=== PATIENT | female | born 1930 | race Caucasian/White ===

== ENCOUNTER 2017-05-09 08:00 | Outpatient (CLI) | payer MEDICARE | END 2017-05-09 08:01 | disposition home or self-care (01) | LOC: LAB.R 08:00 | PROVIDERS: ATTEND Family Medicine | DX: L89.159 Pressure ulcer of sacral region, unspecified stage (principal) | CPT/HCPCS: 87070; 87077; 87205 ==

== ENCOUNTER 2017-07-23 12:00 | Outpatient (CLI) | payer MEDICARE | END 2017-07-23 12:01 | disposition home or self-care (01) | LOC: LAB.F 12:00 | PROVIDERS: ATTEND Registered Nurse | DX: S31.809A Unspecified open wound of unspecified buttock, initial encounter (principal) | CPT/HCPCS: 87070; 87077; 87205 ==

== ENCOUNTER 2017-11-30 08:00 | Outpatient (CLI) | payer MEDICARE | END 2017-11-30 08:01 | disposition home or self-care (01) | LOC: LAB.R 08:00 | PROVIDERS: ATTEND Registered Nurse | DX: N76.0 Acute vaginitis (principal) | CPT/HCPCS: 87070; 87077; 87181 ==

== ENCOUNTER 2018-04-10 09:01 | Outpatient (CLI) | payer MEDICARE | END 2018-04-10 09:02 | disposition critical access hospital (66) | LOC: EMS 09:01 | PROVIDERS: ATTEND Surgery | DX: R53.1 Weakness (principal); R09.89 Other specified symptoms and signs involving the circulatory and respiratory systems; W06.XXXA Fall from bed, initial encounter; Y92.003 Bedroom of unspecified non-institutional (private) residence as the place of occurrence of the external cause | CPT/HCPCS: A0425; A0429 ==

== ENCOUNTER 2018-04-10 09:32 | Emergency (ER) | payer MEDICARE ==
--- NOTE | 2018-04-10 09:40 | ED Physician Documentation ---
PD HPI Fall - Stated complaint Stated Complaint: FALL - Chief complaint Chief Complaint: General - History obtained from History obtained from: EMS - History of Present Illness Mechanism of injury: Other Fall distance: From bed Where injury occurred: Home Timing - onset: Today Associated symptoms: Weakness Symptoms improve with: Rest Similar symptoms before: Has not had sx before Recently seen: Not recently seen - Additional information Additional information: 87-year-old female with advanced dementia and history of coronary artery disease [place] and this morning while she was being cleaned up by her attendant she fell out of her bed. She fell onto her left side. When the patient was evaluated by paramedics and they were unable to palpate painful areas they were able to get her to sit up in a wheelchair and in this position the patient appeared to be her usual. The patient is minimally interactive. She does have a POLST indicating comfort measures. Review of Systems Unable to obtain: Dementia PD PAST MEDICAL HISTORY - Past Medical History Cardiovascular: Hypertension Respiratory: None Endocrine/Autoimmune: None GI: None : None HEENT: Macular degeneration Psych: Depression Musculoskeletal: Scoliosis Derm: None - Past Surgical History Past Surgical History: Yes General: Appendectomy - Present Medications Home Medications: Ambulatory Orders Medication Instructions Recorded Confirmed RX: Aspirin [Adult Low Dose 81 mg PO DAILY 07/14/15 07/14/15 Aspirin EC] RX: Donepezil [Aricept] 10 mg PO DAILY 07/14/15 07/14/15 RX: Escitalopram [Lexapro] 10 mg ORAL DAILY 07/14/15 07/14/15 RX: Losartan [Cozaar] 100 mg PO DAILY 07/14/15 07/14/15 RX: amLODIPine [Norvasc] 10 mg PO DAILY 07/14/15 07/14/15 - Allergies Allergies/Adverse Reactions: Allergies Allergy/AdvReac Type Severity Reaction Status Date / Time No Known Drug Allergies Allergy Verified 04/10/18 09:36 - Social History Does the pt smoke?: No Smoking Status: Never smoker Does the pt drink ETOH?: No Does the pt have substance abuse?: No PD ED PE NORMAL - Vitals Vital signs reviewed: Yes (hypertensive and tachypneic) - General General: No acute distress, Well developed/nourished - HEENT HEENT: Atraumatic, PERRL, EOMI - Neck Neck: Supple, no meningeal sign - Cardiac Cardiac: Other (bradycardic with loud second sound. ) - Respiratory Respiratory: Other (tachypneic with diminished breath sounds. ) - Abdomen Abdomen: Soft, Non tender - Back Back: No CVA TTP, No spinal TTP - Derm Derm: Normal color, Warm and dry, No rash - Extremities Extremities: No deformity, No edema, Other (no specific tenderness to the left side. The right is contracted secondary to CVA) - Neuro Neuro: No motor deficit, No sensory deficit, Other (quiet speech with a significant delay in speech onset. ) Eye Opening: Spontaneous Motor: Localizes to Pain Verbal: Confused GCS Score: 13 - Psych Psych: Normal mood, Normal affect Results - Vitals Vitals: Vital Signs - 24 hr 04/10/18 04/10/18 04/10/18 09:30 09:32 13:26 Temperature 36.3 C L 36.6 C Heart Rate 60 90 Respiratory 26 H 22 Rate Blood Pressure 162/73 H 189/92 H O2 Saturation 87 L 92 93 Oxygen O2 Source [] Room air O2 Source [] Room air O2 Source Room air - Labs Labs: Laboratory Tests 04/10/18 04/10/18 04/10/18 10:18 10:18 10:18 WBC 14.2 H RBC 4.53 Hgb 13.0 Hct 39.4 MCV 86.9 MCH 28.7 MCHC 33.0 RDW 14.0 Plt Count 227 MPV 8.5 Neut # (Auto) 12.6 H Lymph # (Auto) 0.7 L Hyde # (Auto) 0.6 Eos # (Auto) 0.2 Baso # (Auto) 0.1 Absolute Nucleated RBC 0.01 Nucleated RBC % 0.1 Sodium 136 Potassium 4.3 Chloride 105 Carbon Dioxide 25 Anion Gap 6.0 BUN 26 H Creatinine 0.9 Estimated GFR (MDRD) 59 L Glucose 127 H Calcium 9.5 Total Bilirubin 0.6 AST 25 ALT 27 Alkaline Phosphatase 72 Troponin I < 0.04 Total Protein 7.4 Albumin 3.6 Globulin 3.8 Albumin/Globulin Ratio 0.9 L Lipase 36 Urine Color Urine Clarity Urine pH Ur Specific [place] Urine Protein Urine Glucose (UA) Urine Ketones Urine Occult Blood Urine Nitrite Urine Bilirubin Urine Urobilinogen Ur Leukocyte Esterase Ur Microscopic Review Urine Culture Comments 04/10/18 10:30 WBC RBC Hgb Hct MCV MCH MCHC RDW Plt Count MPV Neut # (Auto) Lymph # (Auto) Hyde # (Auto) Eos # (Auto) Baso # (Auto) Absolute Nucleated RBC Nucleated RBC % Sodium Potassium Chloride Carbon Dioxide Anion Gap BUN Creatinine Estimated GFR (MDRD) Glucose Calcium Total Bilirubin AST ALT Alkaline Phosphatase Troponin I Total Protein Albumin Globulin Albumin/Globulin Ratio Lipase Urine Color YELLOW Urine Clarity CLEAR Urine pH 7.0 Ur Specific [place] 1.015 Urine Protein NEGATIVE Urine Glucose (UA) NEGATIVE Urine Ketones NEGATIVE Urine Occult Blood NEGATIVE Urine Nitrite NEGATIVE Urine Bilirubin NEGATIVE Urine Urobilinogen 0.2 (NORMAL) Ur Leukocyte Esterase NEGATIVE Ur Microscopic Review NOT INDICATED Urine Culture Comments NOT INDICATED - Rads (name of study) 2 veiw chest Radiology: Prelim report reviewed (Impression: 1. Small to moderate left pleural effusion with associated atelectasis or consolidation. 2. Probable COPD.), EMP read indepedently, See rad report right shoulder Radiology: Prelim report reviewed (Impression: Normal shoulder radiography.), EMP read indepedently, See rad report PD MEDICAL DECISION MAKING - ED course Complexity details: reviewed old records, reviewed results, re-evaluated patient, considered differential, d/w family, d/w contact center consultant (Ford recommends consult with hospice for oxygen at home. ) ED course: 87-year-old female with advanced dementia is found to be hypoxic on evaluation. She does not have typical symptoms of pneumonia with fever or cough but she does appear to have significant infiltrate on her chest x-ray. This may represent alternative to pneumonia such as a malignancy with pleural effusion. I discussed the findings with the family and they have discussed this among themselves and would like to take their mother home for comfort care. They are requesting some oxygen for use at home. Hospice is consulted in the case and will visit the patient's home tomorrow. In the meantime they are able to make arrangements for oxygen delivery to the home. The patient herself does not have much to say about the findings. The family is understanding that this may be a longer drawnout process as the definitive diagnosis is not known. Departure - Departure Disposition: 01 Home, Self Care Clinical Impression: Hypoxia Pneumonia Qualifiers: Pneumonia type: due to unspecified organism Laterality: left Lung location: lower lobe of lung Qualified Code(s): J18.1 - Lobar pneumonia, unspecified organism Condition: Serious Instructions: ED Pneumonia Adult Follow-Up: Vickie Sweet ARNP [Primary Care Provider] - Discharge Date/Time: 04/10/18 13:36
[2018-04-10 10:25] LABS: BASOPHILS # (AUTO) 0.1 10^3/uL (0.0-0.1); BASOPHILS % (AUTO) 0.4 %; EOSINOPHILS # (AUTO) 0.2 10^3/uL (0.0-0.7); EOSINOPHILS % (AUTO) 1.6 %; LYMPHOCYTES # (AUTO) 0.7 10^3/uL (1.5-3.5); LYMPHOCYTES % (AUTO) 4.7 %; MEAN CORPUSCULAR HEMOGLOBIN 28.7 pg (27.0-31.0); MEAN CORPUSCULAR VOLUME 86.9 fL (81.0-99.0); MEAN PLATELET VOLUME 8.5 fL (7.9-10.8); MONOCYTES # (AUTO) 0.6 10^3/uL (0.0-1.0); MONOCYTES % (AUTO) 4.3 %; NEUTROPHILS # (AUTO) 12.6 10^3/uL (1.5-6.6); PLT - PLATELET COUNT 227 10^3/uL (130-450); RED BLOOD COUNT 4.53 10^6/uL (4.20-5.40); WHITE BLOOD COUNT 14.2 x10^3/uL (4.8-10.8)
[2018-04-10 10:38] LABS: ALBUMIN 3.6 g/dL (3.2-5.5); ALBUMIN/GLOBULIN RATIO 0.9 (1.0-2.2); BILIRUBIN,TOTAL 0.6 mg/dL (0.2-1.0); CALCIUM 9.5 mg/dL (8.5-10.3); CREATININE 0.9 mg/dL (0.4-1.0); TOTAL PROTEIN 7.4 g/dL (6.7-8.2)
[2018-04-10 10:43] LABS: BILIRUBIN,URINE NEGATIVE (NEGATIVE); GLUCOSE, URINE (UA) NEGATIVE (NEGATIVE); KETONES,URINE (UA) NEGATIVE (NEGATIVE); LEUKOCYTE ESTERASE, URINE NEGATIVE (NEGATIVE); NITRITE,URINE NEGATIVE (NEGATIVE); OCCULT BLOOD,URINE NEGATIVE (NEGATIVE); PROTEIN,URINE NEGATIVE (NEGATIVE); UROBILINOGEN,URINE 0.2 (NORMAL) E.U./dL (NORMAL)
[2018-04-10 10:44] LABS: CLARITY,URINE CLEAR (CLEAR)
--- NOTE | 2018-04-10 11:09 | XRAY Report ---
Reason: soa Procedure Date: 04/10/2018 Accession Number: [id number] / [id number] Procedure: XR - Chest 2 View X-Ray CPT Code: 73775 FULL RESULT: EXAM: CHEST RADIOGRAPHY EXAM DATE: 04/10/2018 10:57 AM. CLINICAL HISTORY: Soa. COMPARISON: None. TECHNIQUE: 2 views. 3 images are provided. FINDINGS: Lungs/Pleura: Dense retrocardiac opacity. Diffuse bilateral accentuated interstitial markings; no definite consolidation on the right. No pneumothorax or right pleural effusion. Small to moderate left pleural effusion. The lungs are hyperinflated. Mediastinum: Moderate to marked enlargement of the cardiac silhouette. Tortuous, atherosclerotic thoracic aorta. Apparent widening of the mediastinal silhouette may be secondary to patient rotation. Other: None. IMPRESSION: 1. Small to moderate left pleural effusion with associated atelectasis or consolidation. 2. Probable COPD. RADIA
--- NOTE | 2018-04-10 12:35 | XRAY Report ---
Reason: pain to movement of shoulder. Procedure Date: 04/10/2018 Accession Number: [id number] / [id number] Procedure: XR - Shoulder 3 View RT CPT Code: FULL RESULT: EXAM: RIGHT SHOULDER RADIOGRAPHY EXAM DATE: 04/10/2018 12:27 PM. CLINICAL HISTORY: Pain to movement of shoulder. COMPARISON: None. TECHNIQUE: 3 views. FINDINGS: Bones: The bones are osteopenic. No fracture or bone lesion. Joints: The glenohumeral and acromioclavicular joints are normal. Soft tissues: The visualized hemithorax is unremarkable. No soft tissue swelling. IMPRESSION: Normal shoulder radiography. RADIA
[2018-04-10 13:27] VITALS: BP 189/92
== END 2018-04-10 13:36 | disposition home or self-care (01) ==
LOC: ED 09:32
DX: J18.1 Lobar pneumonia, unspecified organism (principal); R09.02 Hypoxemia; J90 Pleural effusion, not elsewhere classified; I10 Essential (primary) hypertension; Z79.82 Long term (current) use of aspirin
CPT/HCPCS: 36415; 71046; 80053; 81001; 81003; 83690; 84484; 85025; 87086; 99283; 99284

== ENCOUNTER 2018-04-10 13:39 | Outpatient (CLI) | payer MEDICARE | END 2018-04-10 13:40 | disposition home or self-care (01) | LOC: EMS 13:39 | PROVIDERS: ATTEND Surgery | DX: J18.9 Pneumonia, unspecified organism (principal); F03.90 Unspecified dementia, unspecified severity, without behavioral disturbance, psychotic disturbance, mood disturbance, and anxiety | CPT/HCPCS: A0425; A0428 ==

== ENCOUNTER 2018-08-08 11:55 | Outpatient (CLI) | payer MEDICARE ==
--- NOTE | 2018-08-08 16:50 | CONSULTATION NOTE ---
Palliative Care Consultation - Referral Referring Provider: Vickie GOMEZ Time of Visit: 08/08/2018 Referral setting: Adult Family Home (Seen in home setting due to taxing and considerable effort required to leave the home due to bedbound status and advanced dementia with residual right side weakness s/p CVA circa 2014.) Referral Reason: Advanced dementia / Stage 4 coccyx pressure wound - Information Sources Records reviewed: Previous records reviewed History/Review of Systems obtained from: Patient, Family, Caregiver Exam limitations: Clinical condition (Advanced dementia, slowed processing time, limited verbalization) - History of Present Illness Brief History of Present Illness: [id number] for Home Health Nursing: Patient has recently been discharged from Hospice. 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 [id number] with Alzheimer's dementia who was on the Hospice service from 04/11/2018 to 08/02/2018. [facility] [address] [facility] [address] [facility]. Past medical history includes Alzheimers dementia; HTN, pulmonary HT, cardiomegaly, COPD, coccyx pressure wound stage 4, h/o CVA with residual R side hemiparesis, h/o aspiration pneumonia. The patient was admitted to hospice after a fall with injury and suspected aspiration pneumonia and family opted not to treat the pneumonia. She had oxygen needs, poor PO intake, significant wounds and injury from her fall, limited verbal communication, and poor respiratory tolerance to activity and turning. Her condition improved, with some of her wounds resolving, noted improvements with PROM exercises, and increased verbal communication, and she was discharged from Hospice, and referred to the palliative care service for oversight and monitoring. The patient today is awake and reclining in bed and can respond to some questions appropriately, though briefly, and exhibits slow processing. She can follow simple directions. Present at today's visit is Malissa, the [facility] single needle operator. The patient has lived in this facility for 2.5 years, apparently shortly after the patient had a CVA, around May 2015. She had two palliative care consultations with this organization, on 07/20/2014 and 09/01/2014. At that time, she and her were living in her own home with family but the patient was experiencing memory problems and issues with medicine adherence. Caregiver reports that the patient is on a puree diet, and has a good appetite, including drinking adequate amounts of thickened liquids. Caregiver reports that patient sometimes appears to be short of air, but denies it. She had supplemental oxygen while on Hospice, but did not use it and it had been returned. She is not on any respiratory medications, but is on scheduled morphine oral solution every 4 hours, which relieves any shortness of air. The patient has a history of intermittent, non-painful blistering on the skin over at least the past 2.5 years that she has been resident at the [facility]. Caregiver reports that this can occur if there is any wrinkle or crease in the bed linens. The most recent blisters were on the posterior right thigh, and they are scabbed and in the process of healing appropriately. The stage 4 coccyx wound is covered with dressing and it is changed daily around 2pm, so I did not remove it at this visit. Dressing is clean, indicates some drainage, and the skin around the wound is pink, non-tender, no signs of infection, caregiver confirms no pus, redness, tenderness on the actual wound. During the assessment, patient had an episode of appearing she was unsuccessfully trying to swallow something. She reported it felt like she had to burp but couldn't. Caregiver reports that in the past 2 weeks she has had some episodes of "dry heaves." Caregiver also reports the patient has had new complaints of intermittent head aches. Patient has intermittent constipation, relieved with a suppository after 3 days of no BMs. The most recent use of the suppository was yesterday, and previous to that, 2 weeks ago. BP today is 155/74, caregiver reports this is elevated for the patient. Medical/Surgical History - Past Medical History Cardiovascular: reports: Hypertension, Other (Cardiomegaly) Respiratory: reports: COPD, Shortness of breath Neuro: reports: Alzhiemer's (Symptomatic since 2004, more assistance with complicated tasks around 2009.), CVA (2015) Endocrine/Autoimmune: reports: None GI: reports: None, GERD : reports: None HEENT: reports: Macular degeneration Psych: reports: Depression Musculoskeletal: reports: Scoliosis Derm: reports: None MRSA Hx?: No - Past Surgical History General: reports: Appendectomy - Substance History Tobacco Details: Other (Non smoker) Social History - Living Situation Living arrangement: Adult family home ([facility]) Living Situation: With caregiver(s) Support System: Patient is , was 61+ years, and is a long-term resident of [facility]. She has lived at [facility] on the [facility] for the past 2.5 years. She has a strong [employer] taz. She has 3 daughters and one son: Jeannie Quinn, 1st DPOA, [phone] Yulee Ayala Murillo, 2nd DPOA, [phone] [facility] [phone] Duke Gunn [phone], Family History - Family History Family History Comment/Other: Father in his 70s of rheumatic fever; mother at age 97, two brothers with at least one . 4 living children. Medications/Allergies - Medications Home Medications: Ambulatory Orders Medication Instructions Recorded Confirmed Acetaminophen 650 mg PO BID MDD NTE 2500mg from 08/08/18 08/08/18 all sources Acetaminophen 650 mg RC Q6H PRN 08/08/18 08/08/18 Bisacodyl Supp [Dulcolax Supp] 10 mg ME .Q72 HRS PRN 08/08/18 08/08/18 Haloperidol Lactate [Haloperidol 0.5 ml SL Q6H PRN 08/08/18 08/08/18 Lactate (Oral soln bottle)] Hyoscyamine Sulfate 0.25 mg SL Q4H PRN 08/08/18 08/08/18 Morphine Sulfate [Morphine Sulf 0.25 ml PO Q6H MDD hold for 08/08/18 08/08/18 Oral (Roxanol)] respiratory sedation Omeprazole 20 mg PO DAILY PRN 08/08/18 08/08/18 Polyethylene Glycol 3350 [Miralax] 17 g PO DAILY 08/08/18 08/08/18 Probiotics Jarrow Formulas 1 tab PO BID 08/08/18 Sennosides/Docusate Sodium 2 tab PO BID MDD Hold for loose 08/08/18 08/08/18 [Senna-S Laxative Tablet] stools guaiFENesin [Mucinex] 600 mg PO Q12H PRN 08/08/18 08/08/18 - Allergies Allergies/Adverse Reactions: Allergies Allergy/AdvReac Type Severity Reaction Status Date / Time No Known Drug Allergies Allergy Verified 04/10/18 09:36 Review of Systems - Constitutional Constitutional: reports: Weight stable (No recent weight information available). denies: Poor appetite - Eyes Eyes: reports: Vision loss - Ears, Nose & Throat Ears, Nose & Throat: reports: Hearing loss, Other (feels like she needs to burp but can't) - Cardiovascular Cardiovascular: denies: Edema - Respiratory Respiratory: denies: SOB at rest - Gastrointestinal Gastrointestinal: reports: Constipation - Genitourinary Genitourinary: reports: Incontinence (bowel and bladder) - Musculoskeletal Musculoskeletal: reports: Limited range of motion, Other (bedbound) - Integumentary Integumentary: reports: Other (chronic blistering, can be caused by wrinkle in the bed sheets) - Neurological Neurological: reports: General weakness, Memory problems Physical Exam - Vital Signs Temperature: 96.4 F Pulse Rate: 52 O2 Saturation: 99 (room air) Blood Pressure: 155/74 (wrist cuff) - Physical Exam General Appearance: positive: No acute distress, Other (frail) ENT: positive: No signs of dehydration Cardiovascular: positive: No murmur, Other (heartbeat sounds mushy) Respiratory: positive: Chest non-tender, No respiratory distress, Diminished throughout. negative: Wheezes, Rales, Rhonchi Skin: positive: Wound (resolving lesions/blisters on posterior of R thigh), Pressure wound (coccyx, covered with clean dressing) Extremities: positive: No pedal edema, Other. negative: Full ROM (Mild contractures of feet. Contracture of R hand. Fungal nails and toenails. Chronic, intermittent tremble in R lower extremity s/p CVA) Neurologic/Psychiatric: positive: Disoriented to place, Disoriented to time, Flat affect Palliative Care - POLST Patient has POLST: Yes POLST Status: DNR, Selective Treatment Pain: No pain Tiredness/Fatigue: Mild (1-3) Drowsiness/Sedation: Mild (1-3) Dyspnea: Mild (1-3) Anorexia: None Constipation: Yes, Opoid induced Performance Status: Bedbound Dependent for all ADLs Puree diet, thickened liquids Incontinent bowel and bladder Impaired verbalization PPS 30% FAST Dementia Scale: 6e, possibly 7a - Palliative Care Discussion: No family member was present at today's visit. After the visit, I spoke with 1st DPOA, daughter Jeannie Quinn, , to introduce myself and palliative care services and to discuss goals of care. I updated the daughter and explained that I would refer the patient to Home Health RN for wound care, and palliative care would provide ongoing support and monitoring, with transition back to Hospice when appropriate. The goals of care remain consistent with the goals as they were during the patient's time in Hospice: concentrate and comfort and quality of life. They do not want transfer to hospital, particularly inthe case of an aspiration event; keep the patient comfortable. If there is a fall and possibility of a fracture, transfer to hospital is appropriate. They had discussed this with the patient before her dementia progressed to the point of not being able to make decisions, and she had said she would not want any unnecessary life-prolonging measures during the visit the August 2014 consultation with the palliative care nurse practitioner. The current single needle operator of the [facility] has the home for sale, and this patient is the last resident in the [facility]. The family has tentatively discussed transferring the patient to the home of one of the [facility]'s caregivers, a woman named Leeanne, once the house is ready to shut down. Jeannie said they were taking it a day at a time. She knows her mother, if she were completely aware, would not want to continue living like this, especially after her had . The family wishes for a dignified for her. Impression and Recommendations - Palliative Care Impression: 88-year-old frail female with Alzheimer's dementia who was on the Hospice service from 04/11/2018 to 08/02/2018. Her condition improved, she was discharged from Hospice and referred to the palliative care service. She would benefit from Home Health RN oversight for management of a non-resolved stage 4 coccyx pre ssure ulcer. Family's goals of care are comfort, relief of suffering, with no medical procedures or interventions to prolong life. Palliative care will provide support and monitoring, with eventual transition back to Hospice when appropriate. Recommendations/Counseling Done: Alzheimer's dementia: FAST 6c or 7a. Stable, without behaviors. COPD: No respiratory medications, and patient would have difficulty using inhalers. Supplemental oxygen was returned after she was DC'd from Hospice because she never used it. She is on morphine solution 0.25mL (5mg) four times/day routinely for relief of SOA and agitation. EMT DISPATCHER [place] was reviewed and no concerning opioid prescription activity is noted. Constipation, opioid induced: Continue Miralax once scoop daily. Hold for loose stools. Increase Senna/docusate to two tablets BID routine. Wrote script for Jarrow Formulas probiots, 1 tablet PO BID, at [facility] single needle operator's request. Administer Dulcolax suppository after 72 hours of no bowel movement; this occurs intermittently. Last time was yesterday, and previous to that was 2 weeks ago Coccyx pressure ulcer, stage 4: [facility] caregiver changing dressing daily. Referred patient to Home Health for wound teaching and maintenance. Reposition [id number]. Encourage intake of protein and balanced diet (she eats chicken and veggie soups, yogurt, fruit smoothies, etc) GERD: Started a trial of omeprazole 20mg daily, caregiver to monitor and inform palliative care. Continue puree diet and thickened (pudding consistency) liquids. Caregiver to monitor. HTN: Not on hypertensive medications. BP today 155/74. Ordered BP taken BID x 7 days, fax results to [facility]> h/o CVA with residual R side hemiparesis/weakness: Advanced care planning: POLST from 2016 is DNR, selective treatment, no tube feeding. Family goals of care are relief of suffering/SOA and comfort, no prolongation of life. If there is an aspiration event, do not transfer to ED, keep her comfortable at home. The Adult Family Home where the patient resides is being sold and will soon shut down. Family has a tentative plan to have patient live with one of the caregiver's ("Tiny") from the [facility], but plans are in flux. At next visit, discuss with DPOA updating the current POLST to comfort care, or review/sign the existing copy and keep as is. Follow up with [facility] single needle operator 1-2 weeks. Time Spent: 70 minutes were spent, with more than 50% of the time spent on counselling, education, anticipatory guidance, and coordination of care with [facility] single needle operator.
== END 2018-08-08 11:56 | disposition home or self-care (01) ==
LOC: PC 11:55
PROVIDERS: ATTEND Nurse Practitioner
DX: Z51.5 Encounter for palliative care (principal); G30.9 Alzheimer's disease, unspecified; F02.80 Dementia in other diseases classified elsewhere, unspecified severity, without behavioral disturbance, psychotic disturbance, mood disturbance, and anxiety; L89.154 Pressure ulcer of sacral region, stage 4; I69.951 Hemiplegia and hemiparesis following unspecified cerebrovascular disease affecting right dominant side; J44.9 Chronic obstructive pulmonary disease, unspecified; I10 Essential (primary) hypertension; K59.03 Drug induced constipation; T40.605A Adverse effect of unspecified narcotics, initial encounter; K21.9 Gastro-esophageal reflux disease without esophagitis; Z74.01 Bed confinement status; Z79.891 Long term (current) use of opiate analgesic; Z66 Do not resuscitate

== ENCOUNTER 2018-09-18 08:00 | Outpatient (CLI) | payer MEDICARE | END 2018-09-18 23:59 | disposition home or self-care (01) | LOC: LAB.R 08:00 | PROVIDERS: ATTEND Family Medicine | DX: L89.154 Pressure ulcer of sacral region, stage 4 (principal) | CPT/HCPCS: 87070; 87205 ==

== ENCOUNTER 2018-09-26 16:35 | Outpatient (CLI) | payer MEDICARE ==
--- NOTE | 2018-09-26 19:42 | CONSULTATION NOTE ---
Palliative Care Follow Up - Referral Referring Provider: PATRICIA Hare Time of Visit: Lindsey 09/26/2018. 10:45 - 11:25 Referral setting: Home (lives in basement apartment of private caregiver, Thomas) Referral Reason: Advanced dementia / abx follow up - Information Sources Records reviewed: Previous records reviewed History/Review of Systems obtained from: Patient, Family, Caregiver Exam limitations: Clinical condition (Advanced dementia, slow processing time, limited verbalization) - History of Present Illness Update Brief HPI Update: Frail [id number]-female with Alzheimer's dementia, previously on Hospice for about 3 months, discharged after condition improved. She now lives in the home of her private caregiver in [place]. [facility] at [facility], but they have ceased business (owners relocated out of the area). Past medical history includes Alzheimers dementia; HTN, pulmonary HT, cardiomegaly, COPD, coccyx pressure wound stage 4, h/o CVA with residual R side hemiparesis, h/o aspiration pneumonia. Previously on hospice 04/05/2018-08/02/2018. The patient had been admitted to hospice last year after a fall with injury and suspected aspiration pneumonia. The family had opted not to treat the pneumonia. She had oxygen needs, poor PO intake, significant wounds and injury from her fall, limited verbal communication, and poor respiratory tolerance to activity and turning. Her condition improved, with some of her wounds resolving, noted improvements with PROM exercises, and increased verbal communication. She was discharged from Hospice in June 2018. She is being followed by palliative care service and by Home Health RN for coccyx wound management. Patient was moved 6 days ago from her former Adult Family Home (owners are retiring and leaving [facility]) to the private home of her caregiver, Thomas. She has a separate apartment in the open air basement Coccyx wound is not resolving. Recent culture revealed pseudomonas infection, sensitive to ciprofloxacin, levofloxacin, and several IV antibiotics. Levofloxacin 500mg QD x 10 days was started last night (09/25/2018). Patient's EMR for lists ciprofloxacin as an allergy, with no details. Family and caregiver are not aware of any allergies to this, only that she is allergic to lorazepam (no reactions noted). Patient has just been moved 6 days ago from her former [facility], which is closing down, to the private home of her caregiver, Thomas. She is in a neat, clean bedroom on the daylight basement level. Patient is mostly non-verbal with very slow processing time. She does respond to most questions but very slowly. She is bedbound, unable to reposition herself, is awake during the assessment. Transfer is by Cuca lift. She has been out of bed and in her W/C only once since moving here. Thomas reports that the patient has a very good appetite. Texture is fine chopped, and puree. She chokes on thin liquids, so she is on thickeners. She has intermittent constipation, with no BMs 2-3 days, then bowel softeners given, usually resulting in a very large BM. HH RN visits have increased from 2x/week to 3x/week. Patient appears clean and well taken care of. Patient is in middle of bowel movement as this visit begins. Caregiver is delaying cleaning her up until after this visit. Dressing is clean, dry, intact. Next HH RN visit is tomorrow. Daughter Jeannie reports being very pleased with having the patient in this new setting. Social History - Living Situation Living arrangement: Other (In the private home of her paid caregiver.) Living Situation: With caregiver(s) Support System: Patient is , was 61+ years, and is a long-term resident of [facility]. She had [facility] living at [facility] for the past 2.5 years. She just moved in to the private home of her paid caregiver, Thomas. She has a strong Roman Catholic taz. She has 3 daughters and one son: Jeannie Quinn, 1st DPOA, [phone] Jackson Ayala Lidia, 2nd DPOA, [facility] [phone] Duke Gunn [phone], Medications/Allergies - Medications Home Medications: Ambulatory Orders Medication Instructions Recorded Confirmed Acetaminophen 1,000 mg PO BID MDD NTE 2500mg 08/08/18 09/26/18 from all sources Acetaminophen 650 mg RC Q6H PRN 08/08/18 09/26/18 Bisacodyl Supp [Dulcolax Supp] 10 mg IA .Q72 HRS PRN 08/08/18 09/26/18 Hyoscyamine Sulfate 0.25 mg SL Q4H PRN 08/08/18 09/26/18 Morphine Sulfate [Morphine Sulf 0.25 ml PO Q6H MDD hold for 08/08/18 09/26/18 Oral (Roxanol)] respiratory sedation Polyethylene Glycol 3350 [Miralax] 17 g PO DAILY 08/08/18 09/26/18 Probiotics Jarrow Formulas 1 tab PO BID 08/08/18 09/26/18 Sennosides/Docusate Sodium 2 tab PO BID MDD Hold for loose 08/08/18 09/26/18 [Senna-S Laxative Tablet] stools guaiFENesin [Mucinex] 600 mg PO Q12H PRN 08/08/18 09/26/18 Levofloxacin [Levaquin] 500 mg PO DAILY MDD for 10 days 09/26/18 09/26/18 only Losartan Potassium 50 mg PO DAILY 09/26/18 09/26/18 Triamcinolone Acetonide [Nasacort] 1 spray AYSE DAILY PRN 09/26/18 09/26/18 - Allergies Allergies/Adverse Reactions: Allergies Allergy/AdvReac Type Severity Reaction Status Date / Time No Known Drug Allergies Allergy Verified 04/10/18 09:36 Review of Systems - Constitutional Constitutional: reports: Weakness. denies: Poor appetite - Ears, Nose & Throat Ears, Nose & Throat: reports: Hearing loss, Postnasal drainage - Respiratory Respiratory: reports: Cough, Sputum production - Gastrointestinal Gastrointestinal: reports: Abdominal pain ("a little bit"), Constipation (i ntermittent, followed by large bowel movements) - Genitourinary Genitourinary: reports: Incontinence - Musculoskeletal Musculoskeletal: reports: Limited range of motion, Assistive devices (wheelchair), Transfer issues (Cuca lift), Other (bedbound) - Integumentary Integumentary: reports: Dryness - Neurological Neurological: reports: General weakness, Memory problems - Psychiatric Psychiatric: denies: Behavior disturbances - Other Findings Other Findings: Limited ROS Physical Exam - Vital Signs Temperature: 96.5 F Pulse Rate: 69 O2 Saturation: 95 Blood Pressure: 133/67 (wrist cuff) - Physical Exam General Appearance: positive: No acute distress, Other (dozed off) Eyes Bilateral: positive: Normal inspection ENT: positive: No signs of dehydration Neck: positive: Trachea midline Cardiovascular: positive: Regular rate & rhythm (bounding heartbeat), Systolic murmur (2/6) Respiratory: positive: Diminished throughout Skin: positive: Pallor, Pressure wound (coccyx) Extremities: positive: Non-tender, No pedal edema, Other (contractures) Neurologic/Psychiatric: positive: Disoriented to place, Disoriented to time, Flat affect Palliative Care - POLST Patient has POLST: Yes POLST Status: DNR, Selective Treatment Performance Status: Bedbound Transfer by Cuca lift; occasionally lifted to the W/C Dependent for all ADLs Puree/fine chopped diet, thickened liquids Incontinent bowel and bladder Impaired verbalization PPS 30% FAST Dementia Scale: 6e, possibly 7a - Palliative Care Discussion: No family member was present at today's visit. The goals of care remain as they were with Hospice: comfort and quality of life, no transfer to hospital, particularly in the case of an aspiration event. If there is a fall and possibility of a fracture, transfer to hospital is appropriate. Family had discussed this with the patient before her dementia progressed to the point of not being able to make decisions, and she had said she would not want any unnecessary life-prolonging measures. The family wishes for a dignified for her. Spoke with Jeannie, daughter/DPOA, on phone prior to and during visit to give her an update. No issues of concern. Jeannie reports being very pleased with the patient's new living arrangement with Thomas. It appears to be a safe and clean environment and Thomas provides responsive, attentive care. Impression and Recommendations - Palliative Care Impression: 88-year-old frail female with Alzheimer's dementia, discharged from Hospice in July after 3 months on service due to improved condition. Her [facility] closed down, and she is now living in the private home of her paid caregiver, Thomas. Home Health RN comes 3x/week for non-resolved stage 4 coccyx pressure wound; antibiotic therapy was just started. Family's goals of care are comfort, relief of suffering, with no medical procedures or interventions to prolong life. Palliative care will provide support and monitoring, with eventual transition back to Hospice when appropriate. Recommendations/Counseling Done: Alzheimer's dementia: FAST 6c or 7a. Stable, without behaviors. COPD: No respiratory medications (unable to use inhalers). Supplemental oxygen was returned after she was DC'd from Hospice because she never used it. She remains on morphine solution 0.25mL (5 mg) BID routine, and BID prn for relief of SOA and agitation. WALLET ASSEMBLER [place] reviewed. No concerning opioid prescription activity is noted. Constipation, opioid induced: Continue Miralax once scoop daily. Hold for loose stools. Continue Senna/docusate two tablets BID routine. Wrote script for Jarrow Formulas probiots, 1 tablet PO BID, at previous [facility] curriculum counselor's request. Unclear if Thomas is using this. Has Dulcolax suppository if 72 hours of no bowel movement. Coccyx pressure ulcer, stage 4: RN is managing wound care. Recent culture revealed positive for pseudomonas. Started levofloxacin 500mg PO daily x 10 days. Ciprofloxacin is listed as an allergy, without details. Family and caregiver do not have this as an allergy on their list. Caregiver will closely monitor patient for reactions or adverse effects and notify RN or HEALTH INSURANCE ASSESSOR. Antibiotics were started last night. HTN: She was restarted on losartan 50mg daily end of July. BP today 133/67, improvement from previous visit 08/08/18 when BP was 155/74. h/o CVA with residual R side hemiparesis/weakness: Stable. Contractures of UE and LE, caregiver provides massage and repositioning and support Advance care planning: POLST DNR, selective treatment, no tube feeding. Family goals of care are relief of suffering/SOA and comfort, no prolongation of life. If there is an aspiration event, do not transfer to ED, keep her comfortable at home. Home Health RN visits 3x/week. Monitor for reaction to abx, as well as successful response Follow up on abx/coccyx wound 1-2 weeks. Follow up every 4-8 weeks or as needed. Time Spent: 40 minutes were spent, with more than 50% of the time spent on counselling, education, and coordination of care with caregiver.
== END 2018-09-26 16:36 | disposition home or self-care (01) ==
LOC: PC 16:35
PROVIDERS: ATTEND Nurse Practitioner
DX: Z51.5 Encounter for palliative care (principal); G30.9 Alzheimer's disease, unspecified; F02.80 Dementia in other diseases classified elsewhere, unspecified severity, without behavioral disturbance, psychotic disturbance, mood disturbance, and anxiety; L89.154 Pressure ulcer of sacral region, stage 4; I69.951 Hemiplegia and hemiparesis following unspecified cerebrovascular disease affecting right dominant side; J44.9 Chronic obstructive pulmonary disease, unspecified; R32 Unspecified urinary incontinence; R15.9 Full incontinence of feces; K59.00 Constipation, unspecified; Z74.01 Bed confinement status; I10 Essential (primary) hypertension; I27.20 Pulmonary hypertension, unspecified; I51.7 Cardiomegaly; H91.90 Unspecified hearing loss, unspecified ear; Z66 Do not resuscitate; T40.2X5A Adverse effect of other opioids, initial encounter; Z87.01 Personal history of pneumonia (recurrent); Z79.891 Long term (current) use of opiate analgesic; Z79.1 Long term (current) use of non-steroidal anti-inflammatories (NSAID)
CPT/HCPCS: 99349

== ENCOUNTER 2018-10-08 14:25 | Outpatient (CLI) | payer MEDICARE ==
--- NOTE | 2018-10-08 20:53 | CONSULTATION NOTE ---
Palliative Care Follow Up - Referral Referring Provider: PATRICIA Hare Time of Visit: Dana 10/08/2018. 14:25 - 15:20 Referral setting: Home Referral Reason: Medication management - Information Sources Records reviewed: Previous records reviewed History/Review of Systems obtained from: Patient, Family, Caregiver Exam limitations: Clinical condition (Dementia) - History of Present Illness Update Brief HPI Update: Frail [id number]-female with Alzheimer's dementia, previously on Hospice for about 3 months, discharged June 2018 after condition improved. She now lives in the home of her private caregiver in [place]. She [facility] at [facility], but they have ceased business (owners relocated out of the area). Past medical history includes Alzheimers dementia; HTN, pulmonary HT, cardiomegaly, COPD, coccyx pressure wound stage 4, h/o CVA with residual R side hemiparesis, h/o aspiration pneumonia. Previously on hospice 04/05/2018- 08/02/2018. Patient has been living at the new residence of paid caregiver two weeks now. Patient has been on here was some unclarity around the last morphine script filled. [facility] didn't fill it as written, which was for 30mL, or a month's supply (at 4 doses per day). They provided prefilled syringes, 0.25mL (5mg) dose per syringe, and supply only 40 syringes, or 10 days. The patient has been requiring less morphine than previously, so there are 3 syringes left. I wrote a new script for morphine solution for Q6hr PRN. Previously it was routine. Patient is looking well today. Her coccyx wound has been decreasing in size since starting the levofloxacin 500mg x 10 days. The antibiotic regimen will be finished today. Paid caregiver notes that patient's functionality and mental status has improved in the 2 weeks she's live there. Her agitation, calling out "Jg," and bracing herself in stiff position have lessened. This is also the period that she's been given antibiotics for the coccyx wound. Today she is awake, makes eye contact, slowly follows cues, and responds appropriately. Very weak voice, very little movement of upper extremities. She has a sporadic wet cough, is able to clear phlegm. Earlier today the Palliative Care eligibility examiner made her initial visit. The patient w as asleep, but did wake up. Home Health RN provides wound care management of coccyx wound Social History - Living Situation Living arrangement: Adult family home Living Situation: With caregiver(s) Support System: Patient is , was 61+ years, and is a long-term resident of [facility]. She had been living at [facility] for the past 2.5 years. She just moved in to the private home of her paid caregiver, Thomas. She has a strong Scientologist taz. She has 3 daughters and one son: Jeannie Quinn, 1st DPOA, [phone] [place] Ayala Murillo, 2nd DPOA, [facility] [phone] Duke Gunn [phone], Medications/Allergies - Medications Home Medications: Ambulatory Orders Medication Instructions Recorded Confirmed Acetaminophen 1,000 mg PO BID MDD NTE 2500mg 08/08/18 10/09/18 from all sources Acetaminophen 650 mg RC Q6H PRN 08/08/18 10/09/18 Bisacodyl Supp [Dulcolax Supp] 10 mg VA .Q72 HRS PRN 08/08/18 10/09/18 Hyoscyamine Sulfate 0.25 mg SL Q4H PRN 08/08/18 10/09/18 Morphine Sulfate [Morphine Sulf 0.25 ml PO Q6H PRN MDD hold for 08/08/18 10/09/18 Oral (Roxanol)] respiratory sedation Polyethylene Glycol 3350 [Miralax] 17 g PO DAILY 08/08/18 10/09/18 Probiotics Jarrow Formulas 1 tab PO BID 08/08/18 10/09/18 Sennosides/Docusate Sodium 2 tab PO BID MDD Hold for loose 08/08/18 10/09/18 [Senna-S Laxative Tablet] stools guaiFENesin [Mucinex] 600 mg PO Q12H PRN 08/08/18 10/09/18 Losartan Potassium 50 mg PO DAILY 09/26/18 10/09/18 Triamcinolone Acetonide [Nasacort] 1 spray AYSE DAILY PRN 09/26/18 10/09/18 - Allergies Allergies/Adverse Reactions: Allergies Allergy/AdvReac Type Severity Reaction Status Date / Time No Known Drug Allergies Allergy Verified 04/10/18 09:36 Review of Systems - Constitutional Constitutional: reports: Fatigue, Weakness, Weight stable. denies: Poor appetite - Ears, Nose & Throat Ears, Nose & Throat: reports: Hearing loss, Postnasal drainage - Respiratory Respiratory: reports: Cough (sporadic), Sputum production - Gastrointestinal Gastrointestinal: reports: Constipation (intermittent), Good appetite - Genitourinary Genitourinary: reports: Incontinence - Musculoskeletal Musculoskeletal: reports: Limited range of motion, Assistive devices (wheelchair), Transfer issues (Cuca lift; bedbound) - Neurological Neurological: reports: General weakness, Memory problems, Pre-existing deficit - Psychiatric Psychiatric: denies: Behavior disturbances - Other Findings Other Findings: Limited ROS Physical Exam - Vital Signs Temperature: 96.3 F Pulse Rate: 58 O2 Saturation: 95 (room air) Blood Pressure: 173/90 - Physical Exam General Appearance: positive: No acute distress, Alert Eyes Bilateral: positive: Normal inspection ENT: positive: No signs of dehydration Neck: positive: Trachea midline Cardiovascular: positive: Regular rate & rhythm, No murmur Respiratory: positive: Diminished throughout. negative: Wheezes, Rales, Rhonchi Skin: positive: No symptoms Extremities: positive: No pedal edema, Other (contractures; thick, fungal toenails on bilat great toes) Neurologic/Psychiatric: positive: Disoriented to place, Disoriented to time, Flat affect Palliative Care - POLST Patient has POLST: Yes POLST Status: Selective Treatment Performance Status: Bedbound General weakness Transfer by Cuca lift; occasionally lifted to the W/C Dependent for all ADLs Puree/fine chopped diet, thickened liquids Incontinent bowel and bladder Impaired verbalization, voice weak PPS 30% FAST Dementia Scale: 7a - Palliative Care Discussion: No family member was present at today's visit. Visit made to confirm morphine dosing and follow up on Home Health RN's report. Determined that morphine is being administered safely and appropriately. Dosing needs are decreasing. The goals of care are comfort and quality of life, no transfer to hospital, particularly in the case of an aspiration event. If there is a fall and possibility of a fracture, transfer to hospital is appropriate. Spoke with Jeannie, daughter/DPOA, on phone during visit to update her on the medication. Also spoke to Malissa, previous [facility] aircraft machinist, regarding morphine syringes and dosing adjustment. Impression and Recommendations - Palliative Care Impression: 88-year-old frail female with Alzheimer's dementia, discharged from Hospice in June 2018 after 3 months on service due to improved condition. She lives in the private home of her paid caregiver, Thomas. She is on Home Health for non- resolved stage 4 coccyx pressure wound; antibiotic therapy was just completed, coccyx wound improved. CIVIL GEOTECHNICAL ENGINEER updated morphine dosing, switched morphine to PRN. Family's goals of care are comfort, relief of suffering, no medical procedures or interventions to prolong life. Palliative care will provide support and monitoring for eventual transition back to Hospice when she meets criteria. Recommendations/Counseling Done: Alzheimer's dementia: FAST 7a. Stable, without behaviors. Improved functionality and cognition since starting antibiotics for coccyx wound COPD: No respiratory medications (unable to use inhalers) and O2 was returned due to non-use. She has morphine solution 0.25mL (5mg) Q6h prn for relief of SOA and agitation. FORESTRY CONSULTANT [place] reviewed. No concerning opioid prescription activity noted. Last refill by [facility] pharmacy was not fulfilled as CIVIL GEOTECHNICAL ENGINEER wrote it. They provided 10 day supply (40 0.25mL syringes, or 10mL, not 30 day supply (30mL bottle). Visit today confirmed dosing and that everything is in order. CIVIL GEOTECHNICAL ENGINEER changed the morphine order from 0.25mL BID ROUTINE and BID PRN, to 0.25mL Q6h PRN. Constipation, opioid induced: Managed on Miralax daily and Senna/docusate two tablets BID routine. Also Dulcolax suppository if 72 hours of no bowel movement. Coccyx pressure ulcer, stage 4: Improved with levofloxacin 500mg PO daily x 10 days, just completed today. RN is managing wound care. HTN: Continue losartan 50mg daily; wrote a refill script. BP today 173/90. h/o CVA with residual R side hemiparesis/weakness: Stable. Contractures of UE and LE, caregiver provides massage and repositioning and support Advance care planning: POLST DNR, selective treatment, no tube feeding. Family goals of care are relief of suffering/SOA and comfort, no prolongation of life. If there is an aspiration event, do not transfer to ED, keep her comfortable at home. Home Health RN managing the coccyx wound. Follow up every 4-8 weeks or as needed. Time Spent: 55 minutes were spent, with more than 50% of the time spent on counselling, education, and coordination of care with caregiver, family, former [employer] aircraft machinist.
== END 2018-10-08 14:26 | disposition home or self-care (01) ==
LOC: PC 14:25
PROVIDERS: ATTEND Nurse Practitioner
DX: Z51.5 Encounter for palliative care (principal); G30.9 Alzheimer's disease, unspecified; F02.80 Dementia in other diseases classified elsewhere, unspecified severity, without behavioral disturbance, psychotic disturbance, mood disturbance, and anxiety; J44.9 Chronic obstructive pulmonary disease, unspecified; K59.03 Drug induced constipation; T40.2X5D Adverse effect of other opioids, subsequent encounter; I11.9 Hypertensive heart disease without heart failure; I69.351 Hemiplegia and hemiparesis following cerebral infarction affecting right dominant side; L89.154 Pressure ulcer of sacral region, stage 4; Z79.891 Long term (current) use of opiate analgesic; Z74.01 Bed confinement status; Z66 Do not resuscitate
CPT/HCPCS: 99349

== ENCOUNTER 2019-04-23 14:00 | Outpatient (CLI) | payer MEDICARE ==
--- NOTE | 2019-04-23 16:28 | CONSULTATION NOTE ---
Palliative Care Follow Up - Referral Referring Provider: Vickie GOMEZ Time of Visit: [phone] Referral setting: Other (Caregiver Home) Referral Reason: Alzheimers/Depression - Information Sources Records reviewed: Previous records reviewed History/Review of Systems obtained from: Family (daughter Jeannie present), Caregiver (Thomas) Exam limitations: Clinical condition (patient with dementia) - History of Present Illness Update Brief HPI Update: This is an 88-year-old woman who is cared for by a loving caregiver in a private home, is receiving wound care from home health. Patient was originally admitted to hospice in 03/2018 after Fall with injury and aspiration pneumonia. Opted not to treat the pneumonia, she was admitted to hospice with oxygen needs, poor intake, wounds from her fall, and poor respiratory tolerance to activity and turning. Patient slowly recovered, with improved wounds, support with passive range of motion exercises, and her verbal communication increased. Her condition stabilized and she was discharged from hospice 08/13 and admitted to palliative care for ongoing support. Patient has done very well over the last few months, she is awake and alert, more bright per both caregiver and daughter Jeannie who is available and present for visit. He does have residual right-sided weakness secondary to his CVA in 2014. She does have some hypersensitivity and is also very concerned with any kind of changes, does need cueing and reassurance for exam. Patient actually is able to interact and answer questions, reports only intermittent abdominal pain in her lower abdomen, this is been long-term. Her bowels have been moving, they have modified her diet and she is eating quite healthy. 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 It measures about 0.8 x 0.4 x 0.5 cm, does have thickened edges that are granulated, does appear could be stalled. No signs or symptoms of infection noted in photographs from 04/21 or reported by . Patient has not had any upper respiratory symptoms, no choking, they are following aspiration precautions. Her lungs are diminished in the bases but clear, no wheezing, rales or rhonchi. They are quite pleased with patient's current status and setting. Patient has received flu shot, has not needed any morphine since October, she does present on a FAST scale as a 7 a, and is transferred by [facility]. Palliative care is visiting per request of daughter and caregiver, would like to consider things to address possible depressive symptoms.. Social History - Living Situation Living arrangement: Other Support System: Patient is cared for by her caregiver Leeanne, who is quite attentive and attached. Daughter Jeannie who is D POA, is present and is pleased with the care she is receiving. Jeannie reports her brother does face time her almost daily, her other daughter Ayala visits on a regular basis as well, as well as multiple grandchildren. He is also being supported by the palliative care accounting analyst. She was previously at your home in the [facility], where Leeanne was a caregiver, she has been with her since September. Medications/Allergies - Medications Home Medications: Ambulatory Orders Medication Instructions Recorded Confirmed Acetaminophen 1,000 mg PO BID MDD NTE 2500mg 08/08/18 04/26/19 from all sources Bisacodyl Supp [Dulcolax Supp] 10 mg WI .Q72 HRS PRN 08/08/18 04/26/19 Morphine Sulfate [Morphine Sulf 0.25 ml PO Q6H PRN MDD hold for 08/08/18 04/26/19 Oral (Roxanol)] respiratory sedation Polyethylene Glycol 3350 [Miralax] 17 g PO DAILY PRN 08/08/18 04/26/19 Probiotics Jarrow Formulas 2 tab PO BID 08/08/18 04/26/19 Sennosides/Docusate Sodium 1 tab PO BID PRN MDD Hold for 08/08/18 04/26/19 [Senna-S Laxative Tablet] loose stools guaiFENesin [Mucinex] 600 mg PO Q12H PRN 08/08/18 04/26/19 Losartan Potassium 50 mg PO DAILY 09/26/18 04/26/19 Cholecalciferol (Vitamin D3) 2 cap PO DAILY MDD open for liquid 04/26/19 04/26/19 [Vitamin D3] - Allergies Allergies/Adverse Reactions: Allergies Allergy/AdvReac Type Severity Reaction Status Date / Time No Known Drug Allergies Allergy Verified 04/10/18 09:36 Review of Systems - Constitutional Constitutional: reports: Fatigue, Weight stable (has some thinning but more with change to healthy diet, adequate intake of food and fluids). denies: Fever, Chills - Eyes Eyes: reports: Vision loss - Ears, Nose & Throat Ears, Nose & Throat: reports: Hearing loss, Other (drooling as part of stroke) - Cardiovascular Cardiovascular: reports: Irregular heart rate, Exertional dyspnea. denies: Edema - Respiratory Respiratory: reports: Cough (intermittent moist cough), SOB with exertion. denies: SOB at rest - Gastrointestinal Gastrointestinal: reports: Abdominal pain (vague and fluctuates per patient/cg), Good appetite - Genitourinary Genitourinary: reports: Incontinence - Musculoskeletal Musculoskeletal: reports: Limited range of motion (right side), Muscle weakness - Integumentary Integumentary: reports: Other (none stage IV healing decub coccyx) - Neurological Neurological: reports: General weakness, Memory problems, Slurred speech - Psychiatric Psychiatric: reports: Depression, Anxiety (with care or movement) - Hematologic/Lymphatic Hematologic/Lymphatic: denies: Recurrent infections (last treated for wound infection september) - All Other Systems All Other Systems: reports: Other (limited ROS) Physical Exam - Vital Signs Temperature: 96.6 C Pulse Rate: 58 Respiratory Rate: 16 O2 Saturation: 96 (ra @ rest) Blood Pressure: 102/58 - Physical Exam General Appearance: positive: No acute distress, Alert, Other (drifted off to sleep easily during conversation). negative: Anxious Eyes Bilateral: positive: Conjunctivae nml ENT: positive: Other (drooling) Neck: positive: Trachea midline Cardiovascular: positive: Irregular Respiratory: positive: Diminished in bases. negative: Wheezes, Rales, Rhonchi Abdomen: positive: Soft, Nml bowel sounds Skin: positive: Pallor Extremities: positive: No pedal edema Neurologic/Psychiatric: positive: Disoriented to time, Slurred/abnml speech (voice quiet), Flat affect Palliative Care - POLST Patient has POLST: Yes POLST Status: DNR, Selective Treatment Pain: Pain unchanged, Location (intermittent abdominal discomfort; OA with timed APAP;) Sleep: Sleeps well Constipation: No, Comment (using diet) Feelings of wellbeing/Perceived Quality of Life: Good, Acceptable, Improved Performance Status: She continues with some fatigue, she does nap frequently. She does participate in conversations with family and caregiver. She is able to speak short sentences, does not appear acutely confused though does have short-term memory issues. She continues to be a [employer] [facility], they do have a tilt in space wheelchair, tiny does take her out on the patio and for short walks with the wheelchair - Palliative Care Discussion: Caregiver concerned regarding weather changes, less able to get her out into the sunshine. Wondering if we could initiate vitamin D and noticing some noticeable mood changes. Daughter at present at visit, weighing benefits and burdens would not recommend antidepressant at this point. Would agree can have vitamin D, patient has difficulty with pills, they will get to 2000 unit capsules and use liquid. This should give her probably a baseline dose around 2000 units. We also discussed about light therapy, particularly for patients with dementia and SAD. Daughter is interested in pursuing. Both caregiver and daughter feel the current arrangement is working out quite well, patient is in agreement. No concerns of current placement though Leeanne may be at bereavement risk if patient were to deteriorate as is very connected. Impression and Recommendations - Palliative Care Impression: This is an 88-year-old frail woman with Alzheimer's dementia, status post CVA with right hemiparesis. She lives in the private home of her paid caregiver, a Leeanne. 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 She has improved as far as her alertness, interaction, nutritional status and mood. She is well cared for in her current setting. Palliative care continue to provide support on as-needed basis for any problems that arise as patient is homebound. Recommendations/Counseling Done: 1. Depression. Caregiver reports decrease in mood with change in weather. Will go ahead and initiate per her request vitamin D 4000 units. Counseling also provided regarding 10,000 Lux light therapy, with instructions to use 30 minutes in the morning, counseling provided regarding technique and rationale behind it. Particularly in the patient with Alzheimer's. Daughter will obtain. We will continue to monitor, could add SSRI if needed, would like not to add to pill burden. 2. Coccyx pressure ulcer stage IV. It has improved dramatically, though does appear somewhat stalled in a chronic state, is quite small at 0.8 x 0.4 x 0.5 cm. Unfortunately pressure mattress is no longer functional, problem solved with daughter regarding options for replacement or improvement. Caregiver quite vigilant regarding pressure relief measures. No other signs or symptoms of pressure points or decline. 3. Hypertension. Patient continues on losartan 50 mg daily, she is somewhat hypotensive today, but in review of home health records has been running in the adequate range. 4. Alzheimer's dementia FAST7A. Patient is stable she has no behaviors, and actually has improved with more healthy diet, stimulation of her environment, increased socialization. 5. COPD. Patient has not had any further exacerbations, or symptoms noted. 6. Constipation. Currently managing with diet only, does have as needed meds if needed. 7. Advanced care planning. Patient does have a POLST as DNA R/selective treatment. Goals continue to focus on quality of life issues no prolongation of life. They do not want her transferred to an ED, but managed at home for comfort. Plan is to transition back to hospice when appropriate or decline. Time Spent: 45 minutes with greater than 50% of this done in counseling regarding management of depressive symptoms, care needs, and anticipatory guidance.
== END 2019-04-23 14:01 | disposition home or self-care (01) ==
LOC: PC 14:00
PROVIDERS: ATTEND Nurse Practitioner Adult Health
DX: Z51.5 Encounter for palliative care (principal); F32.9 Major depressive disorder, single episode, unspecified; L89.154 Pressure ulcer of sacral region, stage 4; I10 Essential (primary) hypertension; I95.9 Hypotension, unspecified; J44.9 Chronic obstructive pulmonary disease, unspecified; G30.9 Alzheimer's disease, unspecified; F02.80 Dementia in other diseases classified elsewhere, unspecified severity, without behavioral disturbance, psychotic disturbance, mood disturbance, and anxiety; I69.351 Hemiplegia and hemiparesis following cerebral infarction affecting right dominant side; R10.9 Unspecified abdominal pain; M19.90 Unspecified osteoarthritis, unspecified site; Z66 Do not resuscitate; Z79.899 Other long term (current) drug therapy; Z99.3 Dependence on wheelchair; Z87.19 Personal history of other diseases of the digestive system
CPT/HCPCS: 99349